=== PATIENT | male | born 1995 | race Caucasian/White ===

== ENCOUNTER 2016-12-20 21:39 | Emergency (ER) | payer OTHER, SELFPAY ==
[2016-12-20 22:06] VITALS: BP 143/76
--- NOTE | 2016-12-20 22:50 | EDM.PDOC ---
ED HPI GENERAL MEDICAL PROBLEM - General Chief Complaint: Gastrointestinal Problem Stated Complaint: BOWEL OBSTRUCTION Time Seen by Provider: 12/20/16 22:33 Source of Information: Reports: Patient, Old Records, RN Notes Reviewed History Limitations: Reports: No Limitations - History of Present Illness INITIAL COMMENTS - FREE TEXT/NARRATIVE: 21-year-old gentleman presents emergency department today with complaint of abdominal pain, he was evaluated in the clinic today for concerns about constipation plain film of the abdomen was done radiology read is ileus versus small bowel obstruction primary care did contact him recommend he follow-up in the emergency department for further evaluation. He has not had any bowel movement just liquid stool he denies passing any gas no history of abdominal surgeries Abdomen Pain Score (Numeric/FACES): 1 - Related Data Allergies Allergy/AdvReac Type Severity Reaction Status Date / Time Sulfa (Sulfonamide Allergy Rash Verified 12/20/16 22:08 Antibiotics) Home Meds: Home Meds Bisacodyl [Dulcolax] 10 mg RC DAILY PRN 12/20/16 [History] Magnesium Hydroxide [Milk of Magnesia] 30 ml PO DAILY PRN 12/20/16 [History] Polyethylene Glycol 3350 [MiraLAX] 17 gm PO DAILY PRN 12/20/16 [History] Past Medical History HEENT History: Reports: Other (See Below) Other HEENT History: dyslexia Gastrointestinal History: Reports: Chronic Constipation - Infectious Disease History Infectious Disease History: Reports: None - Past Surgical History Head Surgeries/Procedures: Reports: None GI Surgical History: Reports: None Social & Family History - Tobacco Use Smoking Status *Q: Never Smoker Second Hand Smoke Exposure: No - Caffeine Use Caffeine Use: Reports: Soda - Recreational Drug Use Recreational Drug Use: No ED ROS GENERAL - Review of Systems Review Of Systems: See Below Constitutional: Reports: No Symptoms Respiratory: Reports: No Symptoms Cardiovascular: Reports: No Symptoms GI/Abdominal: Reports: Abdominal Pain, Constipation, Nausea. Denies: Vomiting : Reports: No Symptoms Musculoskeletal: Reports: No Symptoms ED EXAM, GI/ABD - Physical Exam Exam: See Below Exam Limited By: No Limitations General Appearance: Alert, WD/WN, No Apparent Distress Respiratory/Chest: No Respiratory Distress, Lungs Clear, Normal Breath Sounds, No Accessory Muscle Use Cardiovascular: Regular Rate, Rhythm, No Murmur GI/Abdominal: Soft, Non-Tender Course - Vital Signs Last Recorded V/S: Last Vital Signs Temp 97.3 F 12/20/16 22:04 Pulse 87 12/20/16 22:04 Resp 16 12/20/16 22:04 BP 143/76 H 12/20/16 22:04 Pulse Ox 99 12/20/16 22:04 - Orders/Labs/Meds Orders: Active Orders 24 hr Category Date Time Status Enema [RC] ASDIRECTED Care 12/20/16 22:47 Active Peripheral IV Care [RC] . DIRECTED Care 12/21/16 00:31 Active Abdomen Pelvis w Cont [CT] Urgent Exams 12/21/16 00:30 Taken Iopamidol [Isovue-300 (61%)] Med 12/21/16 01:45 Active 119 ml IV . DIRECTED Sodium Chloride 0.9% [Normal Saline] 80 ml Med 12/21/16 01:45 Active IV ASDIRECTED Peripheral IV Insertion Adult [OM.PC] Urgent Oth 12/21/16 00:30 Ordered Medication Orders Sodium Chloride (Normal Saline) 80 mls @ 3 mls/sec IV ASDIRECTED ZION Last Admin: 12/21/16 01:52 Dose: 3 mls/sec Iopamidol (Isovue-300 (61%)) 119 ml IV . DIRECTED ZION Last Admin: 12/21/16 01:52 Dose: 112 ml Labs: Laboratory Tests 12/21/16 12/21/16 12/21/16 Range/Units 00:42 00:42 00:42 WBC 8.3 (4.5-11.0) K/uL RBC 5.43 (4.30-5.90) M/uL Hgb 16.2 H (12.0-15.0) g/dL Hct 44.5 (40.0-54.0) % MCV 82 (80-98) fL MCH 30 (27-31) pg MCHC 36 (32-36) % Plt Count 257 (150-400) K/uL Neut % (Auto) 72 H (36-66) % Lymph % (Auto) 19 L (24-44) % [place] % (Auto) 7 H (2-6) % Eos % (Auto) 1 L (2-4) % Baso % (Auto) 0 (0-1) % Sodium 137 L (140-148) mmol/L Potassium 3.5 L (3.6-5.2) mmol/L Chloride 99 L (100-108) mmol/L Carbon Dioxide 28 (21-32) mmol/L Anion Gap 13.5 (5.0-14.0) mmol/L BUN 11 (7-18) mg/dL Creatinine 1.5 H (0.8-1.3) mg/dL Est Cr Clr Drug Dosing 82.27 mL/min Estimated GFR (MDRD) 59 L (>60) Glucose 90 (74-106) mg/dL Lactic Acid 0.8 (0.4-2.0) mmol/L Calcium 9.4 (8.5-10.1) mg/dL Total Bilirubin 1.0 (0.2-1.0) mg/dL AST 24 (15-37) U/L ALT 34 (12-78) U/L Alkaline Phosphatase 82 (46-116) U/L Total Protein 8.0 (6.4-8.2) g/dL Albumin 4.5 (3.4-5.0) g/dL Globulin 3.5 (2.3-3.5) g/dL Albumin/Globulin Ratio 1.3 (1.2-2.2) Lipase 104 (73-393) U/L Meds: Medications Generic Name Dose Route Start Last Admin Trade Name Freq PRN Reason Stop Dose Admin Sodium Chloride 80 mls @ 3 mls/sec 12/21/16 01:45 12/21/16 01:52 Normal Saline IV 3 mls/sec ASDIRECTED ZION Administration Iopamidol 119 ml 12/21/16 01:45 12/21/16 01:52 Isovue-300 (61%) IV 112 ml . DIRECTED ZION Administration Discontinued Medications Generic Name Dose Route Start Last Admin Trade Name Freq PRN Reason Stop Dose Admin Sodium Chloride 1,000 mls @ 500 mls/hr 12/21/16 00:30 12/21/16 01:00 Normal Saline IV 12/21/16 02:29 500 mls/hr .BOLUS STA Administration Sodium Chloride 10 ml 12/21/16 00:30 12/21/16 00:50 Saline Flush FLUSH 10 ml ASDIRECTED PRN Administration Keep Vein Open Departure - Departure Time of Disposition: 02:36 Disposition: Home, Self-Care 01 Condition: Good Clinical Impression: Constipation Qualifiers: Constipation type: slow transit constipation Qualified Code(s): K59.01 - Slow transit constipation - Discharge Information Forms: ED Department Discharge Additional Instructions: Try the colonoscopy prep for a cleanout then recommend using MiraLAX daily, Please followup with your primary care provider in 3-5 days if not better, please call return to the emergency department with worsening of symptoms. - My Orders Last 24 Hours: My Active Orders 12/20/16 22:47 Enema [RC] ASDIRECTED 12/21/16 00:30 Abdomen Pelvis w Cont [CT] Urgent Peripheral IV Insertion Adult [OM.PC] Urgent 12/21/16 00:31 Peripheral IV Care [RC] . DIRECTED 12/21/16 01:45 Iopamidol [Isovue-300 (61%)] 119 ml IV . DIRECTED Sodium Chloride 0.9% [Normal Saline] 80 ml IV ASDIRECTED - Assessment/Plan Last 24 Hours: My Active Orders 12/20/16 22:47 Enema [RC] ASDIRECTED 12/21/16 00:30 Abdomen Pelvis w Cont [CT] Urgent Peripheral IV Insertion Adult [OM.PC] Urgent 12/21/16 00:31 Peripheral IV Care [RC] . DIRECTED 12/21/16 01:45 Iopamidol [Isovue-300 (61%)] 119 ml IV . DIRECTED Sodium Chloride 0.9% [Normal Saline] 80 ml IV ASDIRECTED Plan: Assessment Acuity = acute Site and laterality = functional constipation Etiology = slow transit time Manifestations = abdominal pain Location of injury = Home Lab values = CBC within normal limits sodium low at 137 consistent hyponatremia potassium low at 3.5 consistent hypokalemia creatinine elevated at 1.5 consistent acute renal injury stage GII, CT scan shows no acute abnormal process Plan Plan is he is going to try the colonoscopy prep and continue with MiraLAX follow -up with primary care upon return home Patient was in agreement with the plan all questions were answered, they were instructed to return to the emergency department or call for worsening symptoms. This note was dictated using BER[employer] voice recognition software please call with any questions.
[2016-12-21] MEDS ORDERED: Sodium Chloride 0.9% 1,000 ML IV STA (00:30)
[2016-12-21] MEDS ORDERED: Sodium Chloride 0.9% 10 ML Syringe FLUSH PRN (00:30)
[2016-12-21] MEDS ORDERED: Sodium Chloride 0.9% 80 ML IV SCH (01:45)
[2016-12-21] MEDS ORDERED: Iopamidol 612 MG/ML 150 ML Bottle IV SCH (01:45)
== END 2016-12-21 03:15 | disposition home or self-care (01) ==
LOC: JP.ED 21:39
DX: K59.01 Slow transit constipation (principal); Z88.2 Allergy status to sulfonamides; Z79.899 Other long term (current) drug therapy
CPT/HCPCS: 36415; 74177; 80053; 83605; 83690; 85025; 96360; 96361; 99285; J7030; J7040; J7050